=== PATIENT | female | born 1975 | race Caucasian/White ===

== ENCOUNTER → 2018-12-01 | Outpatient (REF) | payer BC ==
[2018-12-06 14:31] LABS: HPV HYBRID CAPTURE II Negative (Negative)
== END ==
LOC: M LAB LCGH 13:24
PROVIDERS: ATTEND Physician Assistant
DX: Z12.4 Encounter for screening for malignant neoplasm of cervix (principal)
CPT/HCPCS: 87624; G0123

== ENCOUNTER → 2024-07-04 | Outpatient (CLI) | payer BC | LOC: M RAD 07:33 | PROVIDERS: ATTEND Nurse Practitioner Family | DX: R10.9 Unspecified abdominal pain (principal) ==

== ENCOUNTER → 2024-07-20 | Outpatient (CLI) | payer BC ==
[~2024-07-20] MED LIST: ISOVUE-370 76% 100ML VIAL As Ordered ONE
== END ==
LOC: M RAD 07:42
PROVIDERS: ATTEND Nurse Practitioner Family
DX: K55.1 Chronic vascular disorders of intestine (principal); R10.11 Right upper quadrant pain
CPT/HCPCS: 74175; Q9967